=== PATIENT | female | born 1985 | race Caucasian/White ===

== ENCOUNTER 2017-10-18 11:50 | Day surgery (SDC) | payer OTHER, SELFPAY ==
[2017-10-14 13:12] VITALS: BMI 23.1
[2017-10-18] VITALS (15 sets, daily range): BP systolic 107–122; BP diastolic 64–79; PULSE 66–84; RESP 8–19; TEMP 36.4–36.8; O2SAT 97–100; BMI 23.1; BMI 22.7
[2017-10-18] MEDS: LACTATED RINGERS 1,000 ML 42 ML IV (12:35)
--- NOTE | 2017-10-18 12:49 | PM.PREOP ---
Pre-operative Note Interval Note Pre-op Check: History & Physical Reviewed by Physician and Exam Performed
[2017-10-18] MEDS: MIDAZOLAM 2 MG/2 ML VIAL IV (13:04)
[2017-10-18] MEDS: APREPITANT 40 MG CAPSULE PO (13:04)
[2017-10-18] MEDS: CEFAZOLIN 2 GM/100 ML FROZ.PIGGY IV (13:25)
--- NOTE | 2017-10-18 14:14 | SUR.OPER ---
Lithotomy on padded OR bed. [place] Pad Positioner under torso. Head on pillow, arms padded and tucked at sides. Legs secured in padded yellow fins stirrups.
[2017-10-18] MEDS: BUPIVACAINE 0.5% W/ EPI (PF) 30 ML VIAL INJ (14:44)
--- NOTE | 2017-10-18 15:25 | P.OP_ITS ---
Operative Date/Time/Diagnoses Date of procedure: 10/18/17 Time of procedure: 15:25 Pre-op diagnosis: Dysmenorrhea, menorrhagia, family history of endometriosis Post-op diagnosis: same Procedure & Clinicians Procedure: Laparoscopic supracervical hysterectomy with bilateral salpingectomies Same procedure as scheduled: Yes Indications: Dysmenorrhea menorrhagia with family history of endometriosis Surgeon: Tracey Colbert Tax Compliance Manager: Licha Ying Anesthesia Type: General Operative Notes Findings: Normal tubes ovaries and uterus. Normal bowel surface and liver edge. No evidence of endometriosis or scar tissue. Closure Type: primary Specimen(s): other (Uterus above the level of the bladder and fallopian tubes) Applied: catheter Estimated Blood Loss (mL): 25 Blood products transfused: none Procedure in detail: Patient is brought to the operating room where she underwent general anesthesia and placed in low [facility] stirrups. She was prepped and draped in the usual sterile fashion. A check list was reviewed with the staff in the room prior to beginning of the case. Patient had pulsatile stockings in place and functional. 2 g of Ancef were in prior to beginning of the case.. A non latex Matias catheter was placed. A single-tooth tenaculum was placed on the anterior lip of the cervix and the cervix dilated to a #6 Hegar dilator. The uterine manipulator was placed through the cervix into the uterus with the balloon inflated with 3 mL of air. The area of the umbilical incision and the 5 mm right and left lower quadrant incisions were injected with Marcaine with epinephrine. An incision was made with scalpel. The verries needle was placed into the abdomen and confirmed in the appropriate place with withdrawal on a syringe and then free flow of fluid down through the needle. The abdomen was insufflated with CO2. The needle was removed and a 5 mm trocar placed without difficulty. There did not appear to be any damage is placement of the trocar. The right and left lower quadrant incisions were made with the scalpel and the trochars placed without damage to internal structures. The PK forceps were used to cauterize the mesosalpinx followed by the round ligaments on both sides. Sequential bites were taken down the broad ligaments. The uterine arteries were cauterized. An incision was made above the level bladder pushing the bladder away from the cervix. The CHICHO loop was placed around the uterus and the uterus was amputated above the level of the bladder. Bleeding was controlled with the PK forceps. The PK forceps were used to cauterize in the endocervical canal. A supracervical incision was made and an 11 mm port placed. A 15 mm Endo Catch bag was placed in the abdomen. The uterus, tubes and ovaries were placed in the bag and brought up through the suprapubic port site. The Ismael O was placed. The uterus was hand morselized. The abdomen was reinsufflated and adequate hemostasis was noted. The trochars were removed and the CO2 allowed escape from the abdomen. The fascia layer of the suprapubic site was repaired with 0 Polysorb suture. Skin was closed with 4-0 Monocryl suture at the suprapubic site and the other 3 sites. The patient went to recovery room in good condition. Counts of instruments and sponges were correct. Complications: none Condition: stable Disposition: Acute Care (Outpatient with bed) Plan for aftercare: Routine post laparoscopic supracervical hysterectomy with probable DC in a.m.
[2017-10-18] MEDS: fentaNYL 100 MCG/2 ML INJ 25 MCG IV ×2 (15:33→15:42)
--- NOTE | 2017-10-18 15:51 | SUR.PHASEI ---
STABLE PACU, PAIN TREATED WITH FENTANYL, TOLERATED ICE CHIPS BANDAIDS, JOSSE PAD C/D/I.
--- NOTE | 2017-10-18 16:10 | SUR.PHASEI ---
pt transported up to room 204 and left in stable condition.
[2017-10-18] MEDS: LACTATED RINGERS 1,000 ML 100 ML IV (16:17)
[2017-10-18] MEDS: ONDANSETRON 4 MG/2 ML INJ IV (16:17)
[2017-10-18] MEDS: KETOROLAC 30 MG/ML VIAL IV (18:08)
--- NOTE | 2017-10-18 20:39 | PC.NURSE ---
POST-OP Received pt at approximately 1605 via bed accompanied by SUGAR PLANTATION MANAGER. drowsy but easily arousable. lap sites x3 to abdominal area with bandaids, CDI. frost intact. c/o nausea without emesis, declining dinner tray. also c/o abdominal pain rated 6-7/10. Administered PRN zofran and toradol with good effects. pt able to tolerate some clear liquids, has not advanced passed full liquids yet. oriented to room and call light.
[2017-10-19] MEDS: KETOROLAC 30 MG/ML VIAL IV ×2 (00:39→08:51)
[2017-10-19 00:58] VITALS: BP 115/64; PULSE 73; RESP 17; TEMP 36.3; O2SAT 96
[2017-10-19 05:48] LABS: Add Manual Diff / Slide Review NO; Basophils Percent Auto 0.1 % (0-2); Hematocrit 33.4 % (36-46); Hemoglobin 11.5 g/dL (12.0-16.0); Lymphocytes Percent Auto 9.3 % (25-40); Mean Corpuscular HGB Conc 34.5 % (30-36); Mean Corpuscular Hemoglobin 29.9 PG (26-34); Mean Corpuscular Volume 86.6 fL (80-100); Monocytes Percent Auto 5.9 % (3-14); Neutrophils Absolute Auto 9100 /uL (3000-5900); Neutrophils Percent Auto 84.7 % (50-75); Platelet Count 222 X10^3/uL (150-400); Red Blood Cell Count 3.85 X10^6/uL (4.0-5.2); Red Cell Distribution Width 12.9 % (11.6-14.8); White Blood Cell Count 10.7 X10^3/uL (4.5-11.0)
[2017-10-19 05:50] VITALS: BP 96/53; PULSE 72; RESP 16; TEMP 36.7; O2SAT 98
[2017-10-19 08:41] VITALS: BP 101/66; PULSE 91; RESP 16; TEMP 36.7; O2SAT 99
--- NOTE | 2017-10-19 11:06 | P.DS_ITS ---
History of Present Illness Date Patient Seen: 10/19/17 Time Patient Seen: 11:03 Chief complaint: *OPB*[id number] Discharge Providers Discharge provider: Tracey Colbert MD Summary Discharge Diagnosis: Status post laparoscopic supracervical hysterectomy with bilateral salpingectomies Hospital Course: Patient underwent a laparoscopic supracervical hysterectomy on 10/18/2017. She is ambulatory, able to urinate, passing gas. She is tolerating a regular diet. She does have upper abdominal had shoulder pain from the CO2 gas. Status at Discharge Functional status at discharge: independent ambulation Overall status at discharge: patient is progressing back to baseline Time Spent with Patient Less than 30 minutes Exam Vital Signs (past 8 hours): - 10/19/17 05:50 10/19/17 08:41 Temperature 98.1 F 98.1 F Pulse Rate 72 91 H Respiratory Rate 16 16 Blood Pressure 96/53 L 101/66 Pulse Oximetry 98 99 Oxygen Delivery Method Room Air Narrative Exam Narrative: Patient's abdomen is somewhat distended but appropriately tender. Her dressings are clean, dry, intact. Minimal bleeding vaginally. Extremities without edema and nontender. Objective Labs Result Diagrams: 10/19/17 05:31 Labs: Laboratory Results - last 24 hr 10/19/17 05:31 WBC 10.7 RBC 3.85 L Hgb 11.5 L Hct 33.4 L MCV 86.6 MCH 29.9 MCHC 34.5 RDW 12.9 Plt Count 222 Neut % (Auto) 84.7 H Lymph % (Auto) 9.3 L [place] % (Auto) 5.9 Eos % (Auto) 0.0 L Baso % (Auto) 0.1 Neut # (Auto) 9100 H Discharge Plan Discharge Plan Patient Disposition: Home, Self-Care Discharge Med Rec/Prescriptions Prescriptions: New oxycodone-acetaminophen 5-325 mg Tablet 1 tab PO Q4HR PRN (Reason: Pain, Moderate (4-6)) Qty: 20 RF: 0 ibuprofen 600 mg Tablet 600 mg PO Q6HR PRN (Reason: As Needed For Fever/Mild Pain) Qty: 30 RF: 0 ondansetron [Zofran ODT] 4 mg tablet,disintegrating 4 mg PO Q6-8H PRN (Reason: nausea and vomiting) Qty: 14 RF: 0 No Action No Known Home Medications RF: 0 Follow up/Referrals: Tracey Colbert MD [Physician] - 10/22/17 9:00 am Discharge Orders: Discharge (Order); Ordered 10/19/17 Ordered By: Tracey Colbert Provider Discharge Instructions Diet: Diet as Tolerated Wound Care Report to your healthcare provider any signs of infection, such as:: chills, fever, increased pain and unusual drainage Visit Report/Discharge Packet Stand Alone Forms: Surgery Discharge Discharge Data Attending Provider: Tracey Colbert Quality VTE Deep Vein Thrombosis/Pulmonary Embolism Present on Admission: No
[2017-10-19] MEDS: OXYCODONE/ACETAMINOPHEN 5/325 TABLET 1 TAB PO (13:20)
--- NOTE | 2017-10-19 13:22 | CM.IDA ---
DCP Assessment Note: Pt is a 32 yo female, resident of [place]. Pt is going home today, POD#1 s/p laparoscopic supracervical hysterectomy. Pt's PCP is not listed; Insurance is [employer]. Pt has gone home today w/supportive family. DC by Dr Colbert. Pt ambulating independently upon DC. 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 Is this patient on Medicare? No Prior Living Arrangements House Household Members spouse family Type of transporation used prior to Drives own vehicle admit Independent with ADL's Yes Is patient alert and oriented? Yes Caregiver for Another No Referrals Initiated None needed Discharge Plan Home Transportation Arrangement Family Additional Comment Home w/supportive family. Review Status Complete
== END 2017-10-19 13:26 | disposition home or self-care (01) ==
LOC: OR 11:56 → AC 16:22
PROVIDERS: Visit Provider Specialist
PROC: 0UT94ZL Resection of Uterus, Supracervical, Percutaneous Endoscopic Approach (ICD-10-PCS; CPT 58542; principal; 2017-10-18 13:00)
DX: N80.0 Endometriosis of uterus (principal); N94.10 Unspecified dyspareunia; Z84.2 Family history of other diseases of the genitourinary system; N92.0 Excessive and frequent menstruation with regular cycle
CPT/HCPCS: 58542; 36415; 85025; J0690; J1100; J1885; J2250; J2405; J2704; J3010; J8501